=== PATIENT | female | born 1995 | race American Indian/Alaskan Native ===

== ENCOUNTER 2016-10-28 02:44 | Outpatient (CLI) | payer MEDICAID ==
[2016-10-28 03:00] VITALS: BP 110/65
[2016-10-28] MEDS ORDERED: TYLENOL PO ONE (03:45)
== END 2016-10-28 04:20 | disposition home or self-care (01) ==
LOC: TRG 02:44
PROVIDERS: ATTEND Obstetrics & Gynecology
DX: O62.9 Abnormality of forces of labor, unspecified (principal); Z3A.36 36 weeks gestation of pregnancy

== ENCOUNTER 2016-11-23 11:11 | Outpatient (CLI) | payer MEDICAID ==
[2016-11-23 11:36] LABS: Urine Drugs of Abuse Note Disclamer
[2016-11-23 12:00] LABS: Bacteria,Urine 2+ /HPF (Negative); Bilirubin,Urine NEG (Negative); Blood,Urine SM (Negative); Ketones,Urine NEG (Negative); Leukocyte Esterase,Urine LG (Negative); Nitrite,Urine NEG (Negative); Urobilinogen,Urine < 2.0 mg/dL (<2.0)
[2016-11-23] MEDS ORDERED: VISTARIL PO ONE (12:28)
[2016-11-23 12:59] VITALS: BP 134/70
--- NOTE | 2016-11-23 13:56 | Event Note ---
Date: 11/23/16 patient arrived to triage with c/o external chest pain "it hurts to touch my skin" on left side of chest. Patient very agitated, appeared to be very anxious. She states she receives care with Dr. Carrasquillo at [facility] [place], last visit was Saturday. She is scheduled for IOL 11/26. Patient denies any problems with besides asthma (she used her rescue inhaler before EMS arrived.) Elevated b/ps observed in triage and by EMS, H labs ordered along with a vistaril to help with patient's anxiety. Abd palpated soft with occasional ctx, patient reports good movement, denies SROM, cramping or vag bleeding. Dr. Valladares consulted and based on elevated b/p and 100 protein in her urine, plan was made to admit and induce labor d/t pre-e. Patient made aware of plan by RN, patient refused to have labs drawn and left AMA. Dr. Valladares informed.
== END 2016-11-23 13:35 | disposition left against medical advice (07) ==
LOC: TRG 11:11
PROVIDERS: ATTEND Obstetrics & Gynecology
DX: O26.893 Other specified pregnancy related conditions, third trimester (principal); R03.0 Elevated blood-pressure reading, without diagnosis of hypertension; R07.9 Chest pain, unspecified; O48.0 Post-term pregnancy; Z3A.40 40 weeks gestation of pregnancy
CPT/HCPCS: 59025; 80307; 81001; 93005; 93010; Q0177

== ENCOUNTER 2016-12-02 08:55 | Emergency (ER) | payer MEDICAID ==
[2016-12-02] MEDS ORDERED: NACL 0.9% 1000 ML 1,000 ML IV ONE (10:23)
[2016-12-02] MEDS ORDERED: TORADOL IV ONE (10:24)
[2016-12-02 10:53] LABS: Basophils % (Auto) 0.5 % (0.0-1.8); Eosinophils % (Auto) 0.8 % (0.0-4.3); Hematocrit 35.7 % (30.3-42.9); Hemoglobin 11.7 gm/dl (10.1-14.3); Mean Corpuscular HGB Conc 33 % (30-34); Mean Corpuscular Hemoglobin 28 pg (28-32); Mean Corpuscular Volume 84 fl (79-97); Platelet Count 345 K/mm3 (140-440); Red Blood Count 4.26 M/mm3 (3.65-5.03); Red Cell Distribution Width 16.3 % (13.2-15.2); White Blood Count 11.9 K/mm3 (4.5-11.0)
[2016-12-02 11:02] LABS: Alanine Aminotransferase 209 units/L (7-56); Albumin 2.6 g/dL (3.9-5); Alkaline Phosphatase 105 units/L (35-129); Anion Gap 20 mmol/L; BUN/Creatinine Ratio 25.55; Blood Urea Nitrogen 23 mg/dL (7-17); Calcium 8.5 mg/dL (8.4-10.2); Carbon Dioxide 21 mmol/L (22-30); Chloride 99.4 mmol/L (98-107); Glucose 83 mg/dL (65-100); Sodium 135 mmol/L (137-145); Total Protein 5.3 g/dL (6.3-8.2)
--- NOTE | 2016-12-02 11:11 | Emergency Department Report ---
ED General Adult HPI - General Chief complaint: Pain General Stated complaint: BREAST PAIN Time Seen by Provider: 12/02/16 09:52 Source: patient Mode of arrival: Wheelchair Limitations: No Limitations - History of Present Illness Initial comments: Patient is a 21-year-old female, status post section delivery 4 days ago. Patient presents to ER with complaints of Heaviness of her breasts with pains 4 days. Patient is currently not breast-feeding and has presented today with swelling and heaviness of her breasts. This discomfort in both breasts is making her experience shortness of breath -: Gradual, days(s) (4) Location: left (breasts), right (breasts) Radiation: non-radiation Severity scale (0 -10): 9 Quality: aching, other (heaviness of blood pressures) Consistency: constant Improves with: none Worsens with: none Associated Symptoms: chest pain, shortness of breath, weakness. denies: confusion, cough, diaphoresis, fever/chills, loss of appetite, malaise, nausea/ vomiting, rash, seizure Treatments Prior to Arrival: none - Related Data Home Medications Medication Instructions Recorded Confirmed Last Taken Albuterol Sulfate [Ventolin HFA] 2 puff IH Q4H PRN 10/25/13 10/25/13 10/25/13 00 :00 Previous Rx's Medication Instructions Recorded Last Taken Type Fluticasone Propionate [Flonase] 2 sprays NS QDAY #1 spray 10/25/13 Unknown Rx Acetaminophen/Codeine 1 tab PO Q6H PRN #20 tab 03/10/14 Unknown Rx [Acetaminophen-Codeine #3 TAB] Loratadine [Claritin] 10 mg PO DAILY #30 tablet 03/10/14 Unknown Rx predniSONE [Deltasone] 50 mg PO QDAY #5 tab 03/10/14 Unknown Rx ALBUTEROL NEB's [Proventil 0.083% 2.5 mg IH TID PRN 30 Days 09/29/14 Unknown Rx NEBS] Albuterol Sulfate [Ventolin HFA] 2 puff IH Q4H PRN #1 hfa.aer.ad 09/29/14 Unknown Rx predniSONE [Deltasone] 20 mg PO BID #6 tab 09/29/14 Unknown Rx Amoxicillin/K Clav Tab [Augmentin 1 tab PO BID #20 tablet 12/02/16 Unknown Rx 875MG TAB] Lisinopril [Zestril TAB] 10 mg PO QDAY #30 tablet 12/02/16 Unknown Rx hydrOXYzine PAMOATE [Vistaril] 50 mg PO Q6HR PRN #30 capsule 12/02/16 Unknown Rx Allergies Allergy/AdvReac Type Severity Reaction Status Date / Time No Known Allergies Allergy Verified 10/25/13 00:39 ED Review of Systems ROS: Stated complaint: BREAST PAIN Other details as noted in HPI Constitutional: weakness Eyes: denies: eye pain, eye discharge, vision change ENT: denies: ear pain, throat pain, dental pain, hearing loss Respiratory: shortness of breath. denies: cough, orthopnea, SOB at rest, wheezing Cardiovascular: chest pain (bilateral breast heaviness and fullness), palpitations Endocrine: no symptoms reported Gastrointestinal: denies: abdominal pain, nausea, vomiting, diarrhea, constipation, hematemesis, melena, hematochezia Genitourinary: denies: urgency, dysuria, frequency, hematuria, discharge, abnormal menses Musculoskeletal: denies: joint swelling Skin: denies: rash, change in color, change in hair/nails Neurological: weakness. denies: headache, numbness, paresthesias, confusion ED Past Medical Hx - Past Medical History Hx Hypertension: No Hx Diabetes: No Hx Deep Vein Thrombosis: No Hx Renal Disease: No Hx Sickle Cell Disease: No Hx Seizures: No Hx Asthma: No Hx HIV: No - Social History Smoking Status: Never Smoker Substance Use Type: None - Medications Home Medications: Home Medications Medication Instructions Recorded Confirmed Last Taken Type Albuterol Sulfate [Ventolin HFA] 2 puff IH Q4H PRN 10/25/13 10/25/13 10/25/13 00 :00 History Fluticasone Propionate [Flonase] 2 sprays NS QDAY #1 spray 10/25/13 Unknown Rx Acetaminophen/Codeine 1 tab PO Q6H PRN #20 tab 03/10/14 Unknown Rx [Acetaminophen-Codeine #3 TAB] Loratadine [Claritin] 10 mg PO DAILY #30 tablet 03/10/14 Unknown Rx predniSONE [Deltasone] 50 mg PO QDAY #5 tab 03/10/14 Unknown Rx ALBUTEROL NEB's [Proventil 0.083% 2.5 mg IH TID PRN 30 Days 09/29/14 Unknown Rx NEBS] Albuterol Sulfate [Ventolin HFA] 2 puff IH Q4H PRN #1 hfa.aer.ad 09/29/14 Unknown Rx predniSONE [Deltasone] 20 mg PO BID #6 tab 09/29/14 Unknown Rx Amoxicillin/K Clav Tab [Augmentin 1 tab PO BID #20 tablet 12/02/16 Unknown Rx 875MG TAB] Lisinopril [Zestril TAB] 10 mg PO QDAY #30 tablet 12/02/16 Unknown Rx hydrOXYzine PAMOATE [Vistaril] 50 mg PO Q6HR PRN #30 capsule 12/02/16 Unknown Rx ED Physical Exam - General Limitations: No Limitations General appearance: anxious, in distress (moderate) - Head Head exam: Present: atraumatic, normocephalic, normal inspection - Eye Eye exam: Present: normal appearance, PERRL, EOMI Pupils: Present: normal accommodation - ENT ENT exam: Present: normal orophraynx, mucous membranes dry - Neck Neck exam: Present: normal inspection, full ROM - Respiratory Respiratory exam: Present: respiratory distress (moderate), other (tachypneic) - Cardiovascular Cardiovascular Exam: Present: tachycardia, normal heart sounds - GI/Abdominal GI/Abdominal exam: Present: soft, distended, tenderness (diffuse), diminished bowel sounds - Extremities Exam Extremities exam: Present: normal inspection, full ROM, normal capillary refill - Back Exam Back exam: Present: normal inspection, full ROM - Neurological Exam Neurological exam: Present: alert, oriented X3, CN II-XII intact - Psychiatric Psychiatric exam: Present: anxious ED Course Vital Signs 12/02/16 12/02/16 12/02/16 09:10 09:41 09:45 Temperature 97.5 F L Pulse Rate 123 H 121 H Respiratory 20 25 H Rate Blood Pressure 132/104 124/90 127/89 Blood Pressure [Left] O2 Sat by Pulse 100 100 Oximetry 12/02/16 12/02/16 12/02/16 09:52 10:00 10:19 Temperature 97.7 F Pulse Rate 120 H 124 H 125 H Respiratory 16 21 15 Rate Blood Pressure 143/96 143/96 Blood Pressure 124/90 [Left] O2 Sat by Pulse 99 99 98 Oximetry 12/02/16 12/02/16 12/02/16 10:31 10:45 11:01 Temperature Pulse Rate 123 H 121 H 125 H Respiratory 13 42 H 50 H Rate Blood Pressure 121/98 124/90 143/96 Blood Pressure [Left] O2 Sat by Pulse 97 98 99 Oximetry 12/02/16 12/02/16 12/02/16 11:15 11:31 11:45 Temperature Pulse Rate 123 H 122 H 123 H Respiratory 19 47 H 46 H Rate Blood Pressure 143/96 173/143 173/143 Blood Pressure [Left] O2 Sat by Pulse 98 96 96 Oximetry 12/02/16 12/02/16 12/02/16 12:01 12:29 12:31 Temperature Pulse Rate 127 H 120 H 125 H Respiratory 43 H 37 H 39 H Rate Blood Pressure 191/173 131/76 131/76 Blood Pressure [Left] O2 Sat by Pulse 98 98 97 Oximetry 12/02/16 12/02/16 12:45 13:01 Temperature Pulse Rate 123 H 122 H Respiratory 52 H 46 H Rate Blood Pressure 128/86 179/123 Blood Pressure [Left] O2 Sat by Pulse 97 97 Oximetry ED Medical Decision Making - Lab Data Result diagrams: 12/02/16 10:24 12/02/16 10:24 - EKG Data -: EKG Interpreted by Ct - EKG Data 12/02/16 14:46 Sinus tachycardia, rate of 125 beats per minutes were rightward axis, prolonged QTC and nonspecific ST changes in V2 and V3 some artifacts. No ST elevations. - Medical Decision Making Patient feels much better. Negative study for PE, she has some opacities feel suspicious for pneumonia patient also has elevated blood pressure, UTI. pT WOULD FOLLOW UP WITH her PCP for further evaluation of her BP and referral to see a Psychiatrist Critical care attestation.: If time is entered above; I have spent that time in minutes in the direct care of this critically ill patient, excluding procedure time. ED Disposition Clinical Impression: UTI (urinary tract infection), Hypertension, Pneumonia, Anxiety Disposition: TO HOME OR SELFCARE Is pt being admited?: No Does the pt Need Aspirin: No Condition: Stable Instructions: Hypertension (ED), Bacterial Pneumonia (ED) Additional Instructions: Follow up with your PCP to monitor your BP, RTD if your problem gets worse Prescriptions: Amoxicillin/K Clav Tab [Augmentin 875MG TAB] 1 tab PO BID #20 tablet hydrOXYzine PAMOATE [Vistaril] 50 mg PO Q6HR PRN #30 capsule PRN Reason: Anxiety Lisinopril [Zestril TAB] 10 mg PO QDAY #30 tablet Referrals: PRIMARY CARE, [Primary Care Provider] - 3-5 Days Time of Disposition: 17:07
[2016-12-02] MEDS ORDERED: ATIVAN IV ONE (11:14)
--- NOTE | 2016-12-02 11:30 | XRay Report ---
AP CHEST: HISTORY: chest pain There is poor inspiration. AP view of the chest demonstrates a normal mediastinal and cardiac contour with clear lungs and normal bony and soft tissue structures. IMPRESSION: Negative expiratory AP chest.
[2016-12-02 11:34] LABS: Bilirubin,Urine NEG (Negative); Blood,Urine MOD (Negative); Ketones,Urine NEG (Negative); Leukocyte Esterase,Urine MOD (Negative); Mucus,Urine FEW /HPF; Nitrite,Urine NEG (Negative); Urobilinogen,Urine < 2.0 mg/dL (<2.0)
[2016-12-02] MEDS ORDERED: KIONEX PO ONE (12:25)
[2016-12-02] MEDS ORDERED: ROCEPHIN/NS 1 GM/50 ML 1 GM/50 ML BAG IV ONE (12:25)
[2016-12-02] MEDS ORDERED: ZOFRAN IV ONE (15:03)
--- NOTE | 2016-12-02 15:53 | Cat Scan Report ---
FINAL REPORT PROCEDURE: CT ANGIO CHEST TECHNIQUE: Computerized tomographic angiography of the chest was performed after the IV injection of iodinated nonionic contrast including image processing. The image data was postprocessed using 2-dimensional multiplanar reformatted (MPR) and 3-dimensional (MIP and/or volume rendered) techniques. HISTORY: Tachycardia, rightward axis, SOB s/p delivery COMPARISON: No prior studies are available for comparison. FINDINGS: CHF is present. Moderate right-sided and small left-sided pleural effusions are seen. Moderate pericardial effusion is seen. There are patchy ground-glass infiltrates in the lungs. Likely residual thymic tissue is seen in the anterior mediastinum. No suspicious lymphadenopathy is seen. There is moderate diffuse anasarca. Mild ascites is seen in the right upper quadrant the abdomen. Thoracic aorta is normal in size but is not well enhanced to evaluate further. Likely reactive lymph nodes are seen in the axilla. No pulmonary embolus is seen. Streak artifact from the SVC contrast limits evaluation of the right upper lobe pulmonary arteries. IMPRESSION: No pulmonary embolus is seen. CHF and pleural effusions are seen. Patchy ground-glass densities in the lungs may be due to atypical pneumonia or pulmonary edema.
[2016-12-02 16:36] VITALS: BP 127/91
== END 2016-12-02 17:27 | disposition home or self-care (01) ==
LOC: ED 08:55
DX: N39.0 Urinary tract infection, site not specified (principal); I10 Essential (primary) hypertension; J18.9 Pneumonia, unspecified organism; F41.9 Anxiety disorder, unspecified
CPT/HCPCS: 36415; 71010; 71275; 80053; 81001; 85025; 93005; 93010; 96361; 96365; 96375; 99285; J0696; J1885; J2060; J2405; J7030; Q9967